=== PATIENT | female | born 2000 | race Caucasian/White ===

== ENCOUNTER 2025-04-18 09:15 | Inpatient (IN) | payer OTHER, SELFPAY ==
[2025-04-18] VITALS (91 sets, daily range): BP systolic 60–153; BP diastolic 33–96; PULSE 67–135; RESP 18; TEMP 36.3–36.8; O2SAT 98–100; BMI 27.0
[2025-04-18] MEDS: LACTATED RINGERS 1,000 ML 125 ML IV CONT ×2 (11:13→13:23)
[2025-04-18] MEDS: AMPICILLIN SODIUM 2 GM in SODIUM CHLORIDE 0.9% IV 100 ML 200 ML IVPB (11:22)
[2025-04-18 11:23] LABS: Hematocrit 35.0 % (37.0-47.0); Hemoglobin 11.4 g/dL (12.0-15.0); Immature Granulocyte Percent A 0.7 % (0-0.5); Lymphocytes Absolute Auto 1.36 K/mm3 (0.9-3.2); Mean Corpuscular HGB Conc 32.6 g/dl (32-36); Mean Corpuscular Hemoglobin 29.0 pg (26-34); Mean Corpuscular Volume 89.1 fl (80-100); Nucleated Red Blood Cells Absolute Auto 0.000 K/mm3 (0.0-0.012); Nucleated Red Blood Cells Perc 0.0 % (0.0-0.2); Platelet Count Result 199 k/mm3 (150-375); Red Blood Count 3.93 M/mm3 (4.2-5.4); White Blood Count 17.6 K/mm3 (4.5-10.0)
--- NOTE | 2025-04-18 11:28 | LDADM ---
This patient, Zakia Barba, was admitted to Labor/Delivery/Recovery 108 on 04/18/25 at 09:15. Plans for labor, pain management and were discussed with patient. Patient/family oriented to hospital policies and general routines including ID bracelet, bed and alarms, visiting hours, pain management, procedures, bathroom and other care routines, personal items, smoking policy, room service/diet and guest tray routines, infant security routines, and visiting hours. Patient/Family are encouraged to report perceived risks to care and to ask questions if they do not understand what they are told or what they should do. See OBIX for further documentation.
[2025-04-18 12:07] LABS: Syphilis IgG/IgM Antibody Non-Reactive (Nonreactive)
--- NOTE | 2025-04-18 12:23 | P.PNAN_ITS ---
Anes - Eval Pre Procedure Procedure: Labor Epidural Date/Time: 04/18/25 12:23 Surgeon: Roselia Preop Diagnosis: Labor Pain Pre Op Diagnosis: Labor Patient Data Age: 24 Gender: F Height: 1.75 m Weight: 83 kg Last Vital Signs Temp 36.5 C 04/18/25 11:00 Pulse 91 04/18/25 12:16 BP 149/82 H 04/18/25 12:16 Pulse Ox 99 04/18/25 12:19 O2 Del Method Room Air 04/18/25 11:28 Allergies Allergy/AdvReac Type Severity Reaction Status Date / Time No Known Allergies Allergy Verified 04/18/25 11:36 Home Medications ?Medication ?Instructions ?Recorded ?Confirmed ?Type cephalexin 500 mg capsule 500 mg PO Q6H 04/16/2504/18 History vit no.95-ferrous 1 tablet PO DAILY 04/16/25 04/18/25 History fumarate 28 mg-folic acid 800 mcg tablet () Laboratory Tests 04/18/25 11:14 WBC 17.6 H K/mm3 (4.5-10.0) RBC 3.93 L M/mm3 (4.2-5.4) Hgb 11.4 L g/dL (12.0-15.0) Hct 35.0 L % (37.0-47.0) MCV 89.1 fl (80-100) MCH 29.0 pg (26-34) MCHC 32.6 g/dl (32-36) RDW 11.6 % (11.5-14.5) Plt Count 199 k/mm3 (150-375) MPV 12.3 H fl (7.4-10.4) Immature Gran % (Auto) 0.7 H % (0-0.5) Neut % (Auto) 84.3 H % (45.5-73.1) Lymph % (Auto) 7.7 L % (18.3-44.2) [place] % (Auto) 6.9 % (2.6-8.5) Eos % (Auto) 0.1 % (0-4.4) Baso % (Auto) 0.3 % (0.2-1.2) Lymph # (Auto) 1.36 K/mm3 (0.9-3.2) [place] # (Auto) 1.2 H K/mm3 (0.1-0.6) Eos # (Auto) 0.0 K/mm3 (0-0.3) Baso # (Auto) 0.1 K/mm3 (0.0-0.1) Abs Immat Gran (auto) 0.13 H K/mm3 (0.00-0.031) Absolute Neuts (auto) 14.8 H K/mm3 (1.3-6.7) Absolute Nucleated RBC 0.000 K/mm3 (0.0-0.012) Nucleated RBC % 0.0 % (0.0-0.2) Syphilis IgG/IgM Ab Non-reactive (Nonreactive) : gestational age (, KYLER 05/11/25) Patient hx anesthesia problems: none Family hx anesthesia problems: none Results Review: All pre-operative results and documents have been reviewed as part of the pre- operative evaluation. [facility] Family History Family History (Updated 04/16/25 @ 12:13 by Glenys Yee RN) Father Hypertension Acute myocardial infarction Mother Hypertension Social History Social History Smoking status: Former smoker Tobacco type: e-cigarettes/vaping Smoking end date: 07/19/24 Substance use: never Lack of Transportation: No Lack of Food: Never True Current Housing: I Have Housing Concerned About Future Housing: No Difficulty Paying Gas/Electric Bills: No Difficulty Paying for Meds: No Currently Unemployed: No Education: High School Diploma/GED Difficulty w/ Childcare or Family Care: No Spiritual care concerns: No Exam Day of Procedure 04/18/25 12:23 Patient weight: normal Heart: regular rate and rhythm Lungs: normal air movement Airway: Mallampati scale class II Neurological: alert and oriented
[2025-04-18] MEDS: PHENYLEPHRINE 1,000 MCG/10 ML SYRINGE 100 MCG IV PUSH ×2 (12:48→12:51)
[2025-04-18] MEDS: AMPICILLIN SODIUM 1 GM in SODIUM CHLORIDE 0.9% IV 50 ML 100 ML IVPB (15:30)
--- NOTE | 2025-04-18 16:03 | WPDHPUPDATE1 ---
History and Physical Update Update Date/Time: 04/18/25 16:03 24-year-old primiparous female with gestational hypertension presented in labor. She has progressed through labor to 7 cm. Her cervix is 7 cm/80%/-2. Reassuring heart tones, artificial rupture membranes. Should had start active management. History and Physical has been reviewed, including an updated exam of the patient. There are NO changes in the patient's condition. Risks, benefits, and alternatives have been discussed and questions answered. Patient agrees to proceed with procedure.
[2025-04-18] MEDS: OXYTOCIN 30 UNITS/NS 500 ML 30 UNITS/500 ML BAG 6 UNITS IV CONT (16:13)
[2025-04-18] MEDS: OXYTOCIN 30 UNITS/NS 500 ML 30 UNITS/500 ML BAG 999 UNITS IV CONT (16:52)
--- NOTE | 2025-04-18 16:58 | PM.OBPRVD ---
OB - Vaginal Delivery Note Procedure Delivery date: 04/18/25 Events: Gestational Hypertension Delivery augmentation: Rupture of Membranes and Pitocin Delivery monitor: External FHT and External Uterine Episiotomy description: None Laceration Description: Vaginal Delivery repair: vicryl Specimen: No Quantitative Blood Loss (ml): 150 Anesthesia type: Epidural Disposition: Floor Complications: No immediate complications
[2025-04-18] MEDS: OXYTOCIN 30 UNITS/NS 500 ML 30 UNITS/500 ML BAG 125 UNITS IV CONT (17:22)
[2025-04-18] MEDS: IBUPROFEN 600 MG TABLET PO (18:55)
--- NOTE | 2025-04-18 19:35 | OBPPTRN ---
Patient transferred to post room #283 via wheelchair. Support person present. Oriented to unit, room, information board, rooming in, admission packet and security measures. Patient verbalizes understanding.
[2025-04-19 00:40] VITALS: BP 126/65; PULSE 79; RESP 17; TEMP 36.9; O2SAT 99
[2025-04-19 04:30] VITALS: BP 125/75; PULSE 75; RESP 16; TEMP 36.8; O2SAT 100
[2025-04-19] MEDS: IBUPROFEN 600 MG TABLET PO ×3 (04:31→18:28)
[2025-04-19 05:16] LABS: Hematocrit 29.7 % (37.0-47.0); Hemoglobin 9.5 g/dL (12.0-15.0)
--- NOTE | 2025-04-19 06:52 | P.PNOB_ITS ---
OB - PN: Subj Subjective Date/time seen: 04/19/25 06:52 Patient comments: no complaints, pain well controlled, incisional pain, tolerating diet and flatus present OB - PN: Obj Data Labs 04/19/25 04:39 Labs: Laboratory Results - last 24 hr 04/18/25 04/19/25 11:14 04:39 WBC 17.6 H RBC 3.93 L Hgb 11.4 L 9.5 L Hct 35.0 L 29.7 L MCV 89.1 MCH 29.0 MCHC 32.6 RDW 11.6 Plt Count 199 MPV 12.3 H Immature Gran % (Auto) 0.7 H Neut % (Auto) 84.3 H Lymph % (Auto) 7.7 L Sullivan % (Auto) 6.9 Eos % (Auto) 0.1 Baso % (Auto) 0.3 Lymph # (Auto) 1.36 Sullivan # (Auto) 1.2 H Eos # (Auto) 0.0 Baso # (Auto) 0.1 Abs Immat Gran (auto) 0.13 H Absolute Neuts (auto) 14.8 H Absolute Nucleated RBC 0.000 Nucleated RBC % 0.0 Syphilis IgG/IgM Ab Non-reactive Blood Type A Positive Antibody Screen Negative OB - PN A/P Plan day: 1 Plan: routine care Comments: No problems, routine care Time Spent With Patient Time: Total time spent is greater than 50% in coordination of care (as documented) at patient's floor/unit and/or counseling patient: Exam 2 Const: General: comfortable, no acute distress and alert Resp: Effort & Inspection: normal respiratory effort Auscultation: no crackles, no rales and no rhonchi Cardio: Rate: regular rate Heart sounds: no click, no murmurs and no rubs GI: Inspection: non-distended GI Palp: No Tenderness to palpation present (GI) Auscultation: normal bowel sounds Other: Incision - CDI Extrem: General: normal to inspection, no pedal edema and no calf tenderness
--- NOTE | 2025-04-19 07:40 | PC.NURSE ---
Met with mother to obtain bedside glucose on . Mother has been attempting to breastfeed with the nipple shield and then has pumped once and is supplementing with formula. is 36 weeks gestation and has had some active feedings at breast per mom. Mother attempted to latch baby with the shield on the left breast now. Baby does not open her mouth willingly. With some gentle chin traction, baby was able to take about half of the nipple shield in her mouth. We were unable to achieve an appropriate latch to the shield and baby was not willing to suck. Mom says that she is going to supplement at this time and she is strongly encouraged to be consistent with pumping today. Patient feels that she will most likely pump and feed rather than offer the breast. Reviewed the expectations for milk production in the early period. Patient verbalized understanding of the information shared and will call out for assistance with feeding as needed. Primary RN updated.
[2025-04-19 08:05] VITALS: BP 132/72; PULSE 80; RESP 16; TEMP 37.3; O2SAT 97
[2025-04-19] MEDS: DOCUSATE SODIUM 100 MG CAPSULE PO ×2 (09:33→16:19)
[2025-04-19] MEDS: MULTIVIT/MIN/PREN/FOL AC/IRON TABLET 1 TAB PO (09:33)
--- NOTE | 2025-04-19 10:15 | PC.NURSE ---
Patient called out for assistance with her pumped colostrum. She has 5ml in the colostrum dust collector attendant and we applied a cap so that the milk can remain at bedside until the next feeding. Reviewed with mom how to use small amounts of milk with formula and to feed that first before topping off with additional formula if needed. Mom is discouraged that she did not get any milk from the left breast and she is educated that this is very common. Encouraged continued consistency with pumping today. Primary RN updated.
--- NOTE | 2025-04-19 11:33 | WPDANLDPN2 ---
Anes-Prog Note L&D Date/Time: 04/19/25 11:33 Comfortable throughout: labor and delivery Neuraxial method: epidural Epidural/Spinal procedure site: clean & non-tender Neuro status: Neuro function grossly intact. Cardiovascular status: normal Respiratory status: normal Airway patency: baseline Mental status: baseline Post-Op hydration status: normal Vital Signs: Last Vital Signs Temp 37.3 C 04/19/25 08:05 Pulse 80 04/19/25 08:05 Resp 16 04/19/25 08:05 BP 132/72 04/19/25 08:05 Pulse Ox 97 04/19/25 08:05 O2 Del Method Room Air 04/18/25 19:45 Pain score (VAS): 08/28 I/O: Intake & Output 04/18/25 04/19/25 04/19/25 23:59 07:59 15:59 Output Total 450 1550 Balance -450 -1550 Post-procedural complaints: none Patient feedback: Patient satisfied with anesthetic care.
[2025-04-19 12:13] VITALS: BP 143/82; PULSE 90; RESP 18; TEMP 36.6; O2SAT 99
[2025-04-19] MEDS: WITCH HAZEL 40 PADS 1 PAD TOPICAL (16:19)
[2025-04-19 19:24] VITALS: BP 124/76; PULSE 85; RESP 17; TEMP 36.7; O2SAT 98
[2025-04-19 23:25] VITALS: BP 131/72; PULSE 81; RESP 16; TEMP 36.8; O2SAT 98
[2025-04-20 04:40] VITALS: BP 134/93; PULSE 82; RESP 18; TEMP 36.6; O2SAT 100
[2025-04-20] MEDS: IBUPROFEN 600 MG TABLET PO ×2 (04:52→14:03)
[2025-04-20 07:30] VITALS: BP 128/73; PULSE 82; RESP 16; TEMP 36.8; O2SAT 98
[2025-04-20] MEDS: DOCUSATE SODIUM 100 MG CAPSULE PO (09:31)
[2025-04-20] MEDS: MULTIVIT/MIN/PREN/FOL AC/IRON TABLET 1 TAB PO (09:31)
[2025-04-20 12:24] VITALS: BP 142/78; PULSE 94; RESP 18; TEMP 36.8; O2SAT 97
--- NOTE | 2025-04-20 13:33 | P.PNOB_ITS ---
OB - PN: Subj Subjective Date/time seen: 04/20/25 13:33 Interval history: PPD#2 s/p Doing well, pain controlled Asymptomatic Voiding without issue BP normotensive to mild range OB - PN: Obj Data Labs 04/19/25 04:39 OB - PN A/P Assessment and Plan (1) (spontaneous vaginal delivery): Code(s): O80 - Encounter for full-term uncomplicated delivery Status: Acute (2) Gestational hypertension: Code(s): O13.9 - Gestational [-induced] hypertension without significant proteinuria, unspecified trimester Status: Acute Assessment and Plan: - asymptomatic - BP normotensive to mild range - BP check in 1 week Plan day: 2 Plan: routine care and discharge home Time Spent With Patient Time: Total time spent is greater than 50% in coordination of care (as documented) at patient's floor/unit and/or counseling patient: Review of Systems 2 Review of Systems: All systems reviewed & are unremarkable except as noted in HPI and below Exam 2 Const: General: comfortable and no acute distress O rientation/consciousness: patient oriented x3 Resp: Effort & Inspection: normal respiratory effort
--- NOTE | 2025-04-20 13:35 | PM.OBDSVD ---
DS: Admitting Diagnosis Discharge Date 04/20/25 Admitting Diagnosis labor, gestational hypertension DS: Discharge Diagnosis Discharge Diagnosis (1) Gestational hypertension: Code(s): O13.9 - Gestational [-induced] hypertension without significant proteinuria, unspecified trimester Status: Acute (2) (spontaneous vaginal delivery): Code(s): O80 - Encounter for full-term uncomplicated delivery Status: Acute OB - DS: Summary OB Procedures : None OB Procedures Intrapartum: Spontaneous Vag Delivery OB Procedures: : None Peripartum Data Laceration Description: Vaginal Episiotomy description: None Time Spent with Patient Time attestation: Total time spent providing and/or coordinating discharge services: Discharge Plan Discharge Attending physician on discharge: Afshin Wagner Discharging Clinician: Afshin Wagner Patient Disposition: Home Activity: may shower, as tolerated and pelvic rest Diet: as tolerated Patient Instructions: Antibiotic Form Patient Language: [place] Stand Alone Forms: General Discharge Information Follow-up/Referrals: Afshin Wagner MD [Physician, LOADER OPERATOR] - 1 Week Discharge Medications: New ibuprofen 600 mg Tablet 600 mg PO Q6H PRN (Reason: Cramping) Qty: 30 0RF Continued PNV no.95-ferrous fumarate-FA [] 28 mg iron- 800 mcg tablet 1 tablet PO DAILY Discontinued cephalexin 500 mg capsule 500 mg PO Q6H Date of admission: 04/18/25 09:15 Primary Care Provider: UNKNOWN,DOCTOR Admitting Provider: Afshin Wagner Attending physician on admission: Afshin Wagner Condition: Stable
--- NOTE | 2025-04-20 14:30 | PC.NURSE ---
1345. Reviewed standard discharge information with patient including monitoring for required output, transition of stools, feeding 8-12 times every 24 hours, milk production, and follow up at [facility] and with electrical accessories assembler in the first week of life. Parents are encouraged to take the feeding log and continue to track feedings and output for the first week . Mom states she is continuing with her plan to pump and bottle feed and feels ready to transition home. She reports she has two pumps at home for personal use. We double checked her flange size and confirmed the size she needs to be using. She denied the need for a WIC referral. Offered outpatient resources with [place] referral and Services at [facility]. Patient has the Mom/Baby Guide for further education and reference for common concerns, phone numbers, and guidance on when to call the doctor. A feeding plan was added to the infant?s discharge plan. Patient states that she has no further questions or concerns regarding .???
[2025-04-21 09:31] VITALS: BP 123/66; PULSE 93; RESP 18; TEMP 37.4; O2SAT 100
== END 2025-04-20 16:40 | disposition home or self-care (01) | DRG 806 ==
LOC: ANHLDR 17:10 → ANHOB2 19:36
PROVIDERS: Obstetrics & Gynecology; Admitting Provider Obstetrics & Gynecology; Visit Provider Obstetrics & Gynecology
DX: O60.14X0 Preterm labor third trimester with preterm delivery third trimester, not applicable or unspecified (principal); O71.4 Obstetric high vaginal laceration alone; Z37.0 Single live birth; Z3A.36 36 weeks gestation of pregnancy; O13.4 Gestational [pregnancy-induced] hypertension without significant proteinuria, complicating childbirth; O99.824 Streptococcus B carrier state complicating childbirth; O69.81X0 Labor and delivery complicated by cord around neck, without compression, not applicable or unspecified
CPT/HCPCS: 36415; 85014; 85018; 85025; 86593; 86850; 86900; 86901; A9270; J0290; J2371; J2590; J2795; J7120